=== PATIENT | male | born 1985 | race Caucasian/White ===

== ENCOUNTER 2017-12-25 13:08 | Emergency (ER) | payer BC ==
--- NOTE | 2017-12-25 14:24 | RAD REPORT ---
EXAM DESCRIPTION: RAD -Hand Left 3 View - 12/25/2017 2:09 pm CLINICAL HISTORY: Left hand pain status post injury FINDINGS: A comminuted fracture involves the fourth metacarpal neck with mild displacement of the fr acture fragments and angulation at the fracture site. No dislocation is seen
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
--- NOTE | 2017-12-25 14:31 | ER ---
Nurse's Notes [facility] Name: John Munoz Age: 32 yrs Sex: Male : 1985 Arrival Date: 12/25/2017 Time: 13:10 Bed 28 Private MD: Diagnosis: Displaced fracture of base of fourth metacarpal bone, left hand Presentation: 12/25 13:16 Presenting complaint: Patient states: "I punched my truck today around 09:30 am". Pt aa5 c/o left hand pain. Transition of care: patient was not received from another setting of care. Onset of symptoms was December 25, 2017. Initial Sepsis Screen: Does the patient meet any 2 criteria? No. Patient's initial sepsis screen is negative. Does the patient have a suspected source of infection? No. Patient's initial sepsis screen is negative. Care prior to arrival: None. 13:16 Method Of Arrival: Ambulatory aa5 13:16 Acuity: HOLLAND 4 aa5 Historical: - Allergies: 13:18 Amoxil; aa5 13:18 PENICILLINS; aa5 - PMHx: 13:18 None; aa5 - PSHx: 13:18 None; aa5 - Immunization history:: Last tetanus immunization: up to date. - Social history:: Smoking status: Patient uses tobacco products, smokes one pack cigarettes per day. Screenin:45 Abuse screen: Denies threats or abuse. Nutritional screening: No deficits noted. tl3 Tuberculosis screening: No symptoms or risk factors identified. Fall Risk None identified. Assessment: 13:30 General: Appears in no apparent distress. comfortable, well groomed, well developed, tl3 well nourished, Behavior is calm, cooperative, appropriate for age. Pain: Complains of pain in left hand and dorsum of left hand. Neuro: Level of Consciousness is awake, alert, obeys commands, Oriented to person, place, time, situation, Appropriate for age. Cardiovascular: No deficits noted. Cardiovascular: Capillary refill < 3 seconds in right in left. Respiratory: No deficits noted. Airway is patent Trachea midline Respiratory effort is even, unlabored, Respiratory pattern is regular, symmetrical. GI: No signs and/or symptoms were reported involving the gastrointestinal system. : No signs and/or symptoms were reported regarding the genitourinary system. EENT: No signs and/or symptoms were reported regarding the EENT system. Derm: No signs and/or symptoms reported regarding the dermatologic system. Musculoskeletal: Swelling present in left hand and dorsum of left hand. Injury Description: pt punched truck. 14:45 Reassessment: Patient appears in no apparent distress at this time. No changes from tl3 previously documented assessment. Patient and/or family updated on plan of care and expected duration. Pain level reassessed. Patient is alert, oriented x 3, equal unlabored respirations, skin warm/dry/pink. Vital Signs: 13:17 BP 117 / 99; Pulse 89; Resp 16 S; Temp 98.0(TE); Pulse Ox 98% on R/A; Weight 113.4 kg aa5 (R); Height 6 ft. 1 in. (185.42 cm) (R); Pain 3/10; 15:29 BP 116 / 82; Pulse 78; Resp 18; Pulse Ox 100% ; tl3 13:17 Body Mass Index 32.98 (113.40 kg, 185.42 cm) aa5 ED Course: 13:10 Patient arrived in ED. sb2 13:14 Caren Ny FNP-C is PHCP. kb 13:14 Andrew Andrade MD is Attending Physician. kb 13:17 Triage completed. aa5 13:18 Arm band placed on. aa5 14:03 X-ray completed. Portable x-ray completed in exam room. Patient tolerated procedure la2 well. 14:05 Hand Left 3 View XRAY In Process Unspecified. EDMS 14:41 Lucila Aguilera, RN is Primary Nurse. tl3 14:45 Patient has correct armband on for positive identification. Bed in low position. Call tl3 light in reach. Adult w/ patient. 14:45 No provider procedures requiring assistance completed. Patient did not have IV access tl3 during this emergency room visit. 15:28 Orthoglass splint: Ulnar gutter/Boxer splint applied on right forearm. tl3 Administered Medications: 15:00 Drug: [place] (7.5 mg-325 mg) 1 tabs Route: PO; tl3 15:30 Follow up: Response: Medication administered at discharge. tl3 Outcome: 14:31 Discharge ordered by . kb 15:28 Discharged to home tl3 15:28 Condition: good 15:28 Discharge instructions given to patient, Instructed on discharge instructions, follow up and referral plans. medication usage, Demonstrated understanding of instructions, follow-up care, medications, splint care, Prescriptions given X 1. 15:30 Patient left the ED. tl3 Signatures: Dispatcher [employer] EDCaren Leon, TRANSIT MAN-C [place]-Lakeisha Rashid, RN RN aa5 Jemima Newman la2 Randi Giron sb2 Lucila Aguilera, RN RN tl3 Corrections: (The following items were deleted from the chart) 13:18 13:17 Pulse 89bpm; Resp 16bpm; Spontaneous; Pulse Ox 98% RA; Temp 98.0F Temporal; 113.4 aa5 kg Reported; Height 6 ft. 1 in. Reported; BMI: 32.9; Pain 3/10; aa5 15:22 13:30 Reassessment: Patient appears in no apparent distress at this time. No changes tl3 from previously documented assessment. Patient and/or family updated on plan of care and expected duration. Pain level reassessed. Patient is alert, oriented x 3, equal unlabored respirations, skin warm/dry/pink. tl3
[2017-12-25] MEDS ORDERED: HYDROCODONE/APAP 7.5/325 MG TAB ONE (14:45)
== END 2017-12-25 15:30 | disposition home or self-care (01) ==
LOC: ER 13:08
PROC: 2W3KX1Z Immobilization of Left Finger using Splint (ICD-10-PCS; principal; 2017-12-25)
DX: S62.315A Displaced fracture of base of fourth metacarpal bone, left hand, initial encounter for closed fracture (principal); W22.8XXA Striking against or struck by other objects, initial encounter; Y93.89 Activity, other specified; Y92.009 Unspecified place in unspecified non-institutional (private) residence as the place of occurrence of the external cause; Z88.0 Allergy status to penicillin; Z88.1 Allergy status to other antibiotic agents
CPT/HCPCS: 99284

== ENCOUNTER 2019-07-23 00:31 | Emergency (ER) | payer BC, OTHER ==
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
[2019-07-23 02:31] VITALS: BP 140/97; O2SAT 98
== END 2019-07-23 01:54 | disposition home or self-care (01) ==
LOC: ER 00:31
DX: T22.612A Corrosion of second degree of left forearm, initial encounter (principal); T59.891A Toxic effect of other specified gases, fumes and vapors, accidental (unintentional), initial encounter; T32.0 Corrosions involving less than 10% of body surface; Y93.89 Activity, other specified; Y92.89 Other specified places as the place of occurrence of the external cause; Y99.0 Civilian activity done for income or pay; Z88.0 Allergy status to penicillin; Z88.1 Allergy status to other antibiotic agents; K21.9 Gastro-esophageal reflux disease without esophagitis; F17.210 Nicotine dependence, cigarettes, uncomplicated
CPT/HCPCS: 99283